=== PATIENT | male | born 2000 | race Caucasian/White ===

== ENCOUNTER 2019-05-07 02:58 | Day surgery (SDC) | payer OTHER ==
[2019-05-07] MEDS ORDERED: Ibuprofen 800 MG TAB ONE (03:52)
[2019-05-07] MEDS ORDERED: Morphine 4 MG/ML VIAL ONE (04:20)
[2019-05-07] MEDS ORDERED: Ondansetron PF 4 MG/2 ML Vial ONE ×2 (04:20→09:47)
[2019-05-07] MEDS ORDERED: Fentanyl 100 MCG/2 ML VIAL ONE ×2 (04:20→05:25)
[2019-05-07 04:46] LABS: #Basophils 0.1 thou/uL (0.0-0.2); #Eosinphils 0.1 thou/uL (0.0-0.7); #Lymphocytes 2.5 thou/uL (1.20-3.40); #Monocytes 0.5 thou/uL (0.11-0.59); #Neutrophils 4.8 thou/uL (1.40-6.50); %Basophils 0.9 % (0.0-1.0); %Eosinophils 0.9 % (0.0-10.0); %Lymphocytes 31.2 % (28.0-48.0); %Monocytes 6.3 % (0.0-4.0); %Neutrophils 60.6 % (31.0-61.0); Hemoglobin 16.4 g/dL (14.0-18.0); Mean Corpuscular HGB CONC 32.7 g/dL (32.0-36.0); Mean Corpuscular Volume 88.5 fL (78.0-98.0); Mean Platelet Volume 8.1 fL (7.4-10.4); Platelet Count 327 thou/uL (130-400); Red Blood Cell (RBC) Count 5.64 mill/uL (4.00-5.20); White Blood Cell (WBC) Count 7.9 thou/uL (4.8-10.8)
[2019-05-07] MEDS ORDERED: Bupivacaine 0.25% HCL 30 ML VIAL ONE (05:07)
[2019-05-07 05:19] LABS: ALT (SGPT) 25 U/L (8-55); AST (SGOT) 25 U/L (10-45); Albumin 4.9 g/dL (3.5-5.0); Alkaline Phosphatase 94 U/L (50-130); Anion Gap 16 mmol/L (10-20); BUN (Urea Nitrogen) 14 mg/dL (8.4-21.0); Bilirubin, Total 1.1 mg/dL (0.2-1.2); Calc. Creatinine Clearance 0 mL/min (70-130); Calcium 9.8 mg/dL (7.8-10.44); Carbon Dioxide 24 mmol/L (22-29); Chloride 107 mmol/L (98-107); Estimated GFR-MDRD Greater than 90; Globulin 2.8 g/dL (2.4-3.5); Glucose 112 mg/dL (70-105); Potassium 4.7 mmol/L (3.5-5.1); Protein, Total 7.7 g/dL (6.0-8.3); Sodium 142 mmol/L (136-145)
[2019-05-07] MEDS ORDERED: SUGAMMADEX SODIUM 200 MG/2 ML VIAL ONE (05:25)
--- NOTE | 2019-05-07 06:58 | OP ---
DATE OF PROCEDURE: 05/07/2019 PREOPERATIVE DIAGNOSIS: Right testicular torsion. POSTOPERATIVE DIAGNOSIS: Right testicular torsion. PROCEDURES PERFORMED: Scrotal exploration, detorsion of right testicle, and bilateral orchiopexy. ANESTHESIA: General with local. ESTIMATED BLOOD LOSS: Minimal. FINDINGS: At the time of the incision, he had about 180-degree torsion. It did appear to pink up and appeared viable. We were able to de-torse it before the incision to some extent through the skin. There were no other abnormalities noted of the testicle. The right side had a small testicular appendage that was removed as it was thrombosed. DESCRIPTION OF PROCEDURE: Obtained written and verbal consent from the patient, after receiving IV antibiotics, he was taken to the operating suite. He was placed in a supine position on the treatment table. He was given a general anesthetic, oral intubation. He was shaved and sterilely prepped and draped probably during the prepping as well as just manipulating the right testicle up to the undersurface of the median raphae, felt like the testicle had de-torsed. We went ahead and made an incision through the lower aspect of the median raphae and taken it down into the right hemiscrotum and then opened up the tunica vaginalis. The testicle was about 180-degree torsed and we de-torsed it and wrapped it in a moist warm Ray-Louisa. We then took the incision in the left side and then secured that into the left scrotum with 3-0 Nurolon x3. We then looked back at the right side, appeared good, viable, and we went ahead and pexed it in three different places also and then irrigated out with saline, obtained hemostasis. We dripped in some 0.25% Marcaine without epinephrine into each itzel-scrotum and then infiltrated the skin edges at the incision with another 8 mL for a total of 18 mL. We closed the incision in two layers using 3-0 chromic figure-of- eight and 3-0 chromic U-stitches for the two layers. Fluffs and wet panties were placed. He was awakened, extubated, and taken by stretcher to the recovery room. Job ID: [id number]
--- NOTE | 2019-05-07 07:35 | ULT ---
PRELIMINARY REPORT/[facility]/EMERGENCY AFTER HOURS PROCEDURE: Receipt of this report by the clinical staff was confirmed with Jayne Valencia MD by Phyllis Arzoal on May 07, 2019 04:28:00 CDT. Addendum electronically signed by Aaron Arzola on May 07, 2019 4:29:05 AM CDT EXAM: US Scrotum. CLINICAL HISTORY: RT TEST PAIN THAT WOKE HIM FROM SLEEP X 2HRS. SEE NOTES ON LAST IMAGE. THANKS TECHNIQUE: Real-time ultrasound of the scrotum with color Doppler and image documentation. COMPARISON: None provided. FINDINGS: RIGHT TESTICLE: No mass. No flow seen. LEFT TESTICLE: No mass. Normal Doppler flow. EPIDIDYMIDES: There is a no flow seen in the right epididymis. The left epididymis showed normal blood flow. SCROTUM: The small amount of right-sided hydrocele. IMPRESSION: Findings highly suggestive of right-sided testicle torsion with no flow seen. ELECTRONICALLY SIGNED BY: Milton Dean MD May 07, 2019 4:27:34 AM CDT This report is intended for review by the ordering physician only, in accordance of law. If you recei ve this report in error, please call [facility] at [phone]. FINAL REPORT EMERGENCY AFTER HOURS TESTICULAR ULTRASOUND: There is a small right-sided hydrocele. Right testicle measures 3.6 x 2.4 x 2.6 cm. There is no docum entable dopplerable flow present within the right testicle or right epididymis. The left testicle jayesh sures 3.8 x 1.6 x 2.5 cm and demonstrates documentable dopplerable flow. Very small left-sided hydroc govind is present. IMPRESSION: No appreciable demonstrated dopplerable flow within the right testicle and right epididymis with a sm all right hydrocele, suspicious for right-sided testicular torsion. I agree with the preliminary report provided by [facility]. POS:
[2019-05-07] MEDS ORDERED: HYDROcodone/Acetaminophen 5/325 mg Tablet ONE (07:39)
--- NOTE | 2019-05-07 09:41 | CON ---
DATE OF CONSULTATION: 05/07/2019 HISTORY OF PRESENT ILLNESS: This is a 18-year-old white male who 2.5 hours before I saw him had acute onset of right testicular pain. He has not had it before. He did not have it earlier in the day. No trauma and no previous discomfort of this nature. Associated with nausea and vomiting. No fevers or chills. No voiding symptoms. He is in the ER an hour and a half ago and had an ultrasound done that I reviewed. There is no evidence of blood flow in the right testicle. Good blood flow to the left. There is no evidence of testicular mass. ALLERGIES: HE HAS NO. MEDICATIONS: No current medications. PAST MEDICAL AND SURGICAL HISTORY: He does not have any past surgical or medical history. PHYSICAL EXAMINATION: ABDOMEN: Soft and flat. : Penis is without lesion. Right testicle is high-riding and very tender. Left testicle is normal. IMPRESSION: Right testicular torsion. PLAN: Emergent scrotal exploration and detorsion, either removal of the right testicle or right orchidopexy and then left orchidopexy. This was discussed with him. All questions were answered. He received some Urtak [address] OR. Job ID: [id number]
[2019-05-07] MEDS ORDERED: PHENYLEPHRINE-NS 100 MCG/ML 10 ML SYRINGE ONE (09:47)
[2019-05-07] MEDS ORDERED: Dexamethasone 20 MG/5 ML VIAL ONE (09:47)
[2019-05-07] MEDS ORDERED: Lidocaine 1% PF 5 ML VIAL ONE (09:47)
[2019-05-07] MEDS ORDERED: EPHEDRINE 25 MG/5 ML SYRINGE ONE (09:47)
[2019-05-07] MEDS ORDERED: Succinylcholine Chloride 20 MG/ML 10 ml SYRINGE FS ONE (09:47)
[2019-05-07] MEDS ORDERED: PROPOFOL 200 MG/20 ML VIAL ONE (09:47)
== END 2019-05-07 08:24 | disposition home or self-care (01) ==
LOC: ERS 02:58 → SDC/OP 04:48
PROVIDERS: ATTEND Urology
PROC: 0VQC0ZZ Repair Bilateral Testes, Open Approach (ICD-10-PCS; principal; 2019-05-07)
DX: N44.00 Torsion of testis, unspecified (principal); N43.3 Hydrocele, unspecified
CPT/HCPCS: 76870; 80053; 85025; 93976; 96374; 96375; J0690; J1100; J2001; J2270; J2405; J2704; J3010; S0020